=== PATIENT | female | born 1965 | race Hispanic/Latino ===

== ENCOUNTER → 2017-07-01 | Outpatient (CLI) | payer BC ==
--- NOTE | 2017-07-01 10:46 | Diagnostic Imaging Report ---
PROCEDURE:THORACIC SPINE 2VW COMPARISON:None. INDICATIONS:Back pain TECHNIQUE:AP, lateral and swimmers views thoracic spine FINDINGS: 12 rib-bearing thoracic vertebral bodies. Vertebral body height is normal. Mild multilevel degenerative disc disease in the mid thoracic spine with marginal osteophytosis and endplate sclerosis. Grossly normal neural foramen. Intact regional skeleton. Cholecystectomy clips. CONCLUSION: Mild mid thoracic degenerative changes without acute abnormality. Dictated by: Alex Severino M.D. on 07/01/2017 at 10:46 Electronically approved by: Alex Severino M.D. on 07/01/2017 at 10:46
--- NOTE | 2017-07-01 10:48 | Diagnostic Imaging Report ---
PROCEDURE:SP LUMBAR, COMPLETE MIN 4VW TECHNIQUE:AP, lateral, coned-down lateral and bilateral oblique views lumbar spine INDICATION:Low back pain COMPARISON:None. FINDINGS: 5 dal-trb-lhtyyax lumbar vertebral bodies. Vertebral body height is maintained. Mild disc space narrowing at L5-S1. Trace left L5-S1 facet joint narrowing with minimal sclerosis with osteophytosis. Neural foramen are patent. Regional skeleton intact. CONCLUSION: 1. Mild L5-S1 degenerative disc disease and very mild left L5-S1 facet narrowing. 2. Patent neural foramen. Dictated by: Alex Severino M.D. on 07/01/2017 at 10:48 Electronically approved by: Alex Severino M.D. on 07/01/2017 at 10:48
== END ==
LOC: RAD 09:41
PROVIDERS: ATTEND Internal Medicine
DX: M54.5 Low back pain (principal)
CPT/HCPCS: 72070; 72110

== ENCOUNTER → 2018-05-09 | Outpatient (CLI) | payer BC ==
--- NOTE | 2018-05-10 12:43 | Diagnostic Imaging Report ---
#[id number] - [id number] #BILATERAL DIGITAL SCREENING MAMMOGRAM WITH CAD: 05/09/2018 CLINICAL: Routine screening. Comparison is made to exams dated: 04/02/2017 mammogram and 10/05/2013 mammogram - [facility]. Current study contains 4 films. There are scattered fibroglandular elements in both breasts. Current study was also evaluated with a Computer Aided Detection (CAD) system. There are benign vascular calcifications and scattered calcifications in both breasts. No significant masses, calcifications, or other findings are seen in either breast. There has been no significant interval change. IMPRESSION: BENIGN There is no mammographic evidence of malignancy. A 1 year screening mammogram is recommended. The patient will be notified by letter of the results. Sage Vazquez Jr., D.O. cw/:05/10/2018 10:01:59 Freelance Translator: Britt TRISTAN(R)(M), [facility] letter sent: Compared to Prior B9 Mammogram BI-RADS: 2 Benign
== END ==
LOC: MAMMO 08:55
PROVIDERS: ATTEND Internal Medicine
DX: Z12.31 Encounter for screening mammogram for malignant neoplasm of breast (principal)
CPT/HCPCS: 77067

== ENCOUNTER → 2019-06-01 | Outpatient (CLI) | payer BC | LOC: MAMMO 09:14 | PROVIDERS: ATTEND Internal Medicine | DX: Z12.31 Encounter for screening mammogram for malignant neoplasm of breast (principal) | CPT/HCPCS: 77067 ==

== ENCOUNTER → 2020-06-24 | Outpatient (CLI) | payer BC | LOC: MAMMO 09:17 | PROVIDERS: ATTEND Internal Medicine | DX: Z12.31 Encounter for screening mammogram for malignant neoplasm of breast (principal) | CPT/HCPCS: 77067 ==